=== PATIENT | female | born 1990 | race Caucasian/White ===

== ENCOUNTER → 2017-03-25 | Outpatient (CLI) | payer OTHER ==
[~2017-03-25] MED LIST: BCPILLS PO; FERR325T51 PO; MTR600X PO; OXYC-57 PO; PRENTAB26 PO; VNTHFA/IN INH
[2017-03-25 17:19] LABS: HEMATOCRIT 31.5 % (37-47); MEAN CELL VOLUME 84.5 fL (80-100); MEAN CORPUSCULAR HEMOGLOBIN 26.8 pg (25-34); MEAN CORPUSCULAR HGB CONC 31.7 g/dl (32-36); MEAN PLATELET VOLUME 10.2 fL (7.4-10.4); PLATELET COUNT 311 K/uL (130-400); RED BLOOD COUNT 3.73 M/uL (4.2-5.4); WHITE BLOOD COUNT 6.27 K/uL (4.8-10.8)
[2017-03-25 17:45] LABS: PREG INTERNAL NEGATIVE QC NEG CLEAR BACKGROUND; PREG INTERNAL POSITIVE QC POS CONTROL LINE
== END | disposition home or self-care (01) ==
LOC: C.LAB1850 16:11
PROVIDERS: ATTEND Physician Assistant
DX: N92.0 Excessive and frequent menstruation with regular cycle (principal)

== ENCOUNTER → 2017-05-25 | Day surgery (SDC) | payer OTHER ==
[2017-05-09 08:38] VITALS: Ht 154.9 cm; Wt 93.2 kg
[~2017-05-25] VITALS: Ht 154.9 cm; Wt 93.2 kg
[~2017-05-25] MED LIST changes: +ATROPINE SULFATE 0.1 MG/ML 5ML SYR IV PRN; +DEXAMETHASONE SOD INJ 4 MG/ML VIAL IV PRN; +DEXAMETHASONE SOD INJ 4 MG/ML VIAL ONE; +EpHEDrine SULFATE INJ 50 MG/ML AMP IV PRN; +FENTANYL CITRATE INJ 50 MCG/1 ML 2 ML VIAL IV PRN; +FENTANYL CITRATE INJ 50 MCG/1 ML 2 ML VIAL ONE; -FERR325T51 PO; +IBUPROFEN 200 MG TAB ONE; +IBUPROFEN 600 MG TAB PO PRN; +KETOROLAC TROMETHAMINE 30 MG/ML VIAL IV. PRN; +KETOROLAC TROMETHAMINE 30 MG/ML VIAL ONE; +LABETALOL HCL IV 5 MG/ML 20ML IV PRN; +LACTATED RINGER'S 1000ML 1,000 ML IV SCH; +LIDOCAINE HCL 2% 2 ML VIAL (20MG/ML) ONE; +METOCLOPRAMIDE HCL INJ 5 MG/ML 2 ML VIAL IV PRN; +MIDAZOLAM HCL 1 MG/ML 2ML VIAL ONE; -MTR600X PO; +MoRPHine SULFATE 10 MG/ML CARP/VIAL IV PRN; +ONDANSETRON INJ 2 MG/ML 2 ML VIAL IV PRN; +ONDANSETRON INJ 2 MG/ML 2 ML VIAL ONE; -OXYC-57 PO; +OXYCODONE/ACETAMINOPHEN 5-325 TAB PO PRN; +PHENYLEPHRINE 100MCG/ML 5ML SYR IV PRN; -PRENTAB26 PO; +PROPOFOL IV EMULSION 10 MG/ML 20 ML VIAL IV ONE; +SODIUM CHLORIDE 0.9% 1000ML 1,000 ML IV SCH
--- NOTE | 2017-05-25 12:44 | History & Physical Bridge - [place] ---
H&P Re-Evaluation Bridge Note: I have examined the patient, reviewed the History & Physical and in the interval since the performance of the History & Physical I have noted the following changes of clinical significance: No changes noted
--- NOTE | 2017-05-25 12:46 | Discharge Instructions-SurgCtr ---
Discharge Instructions Date of Service May 25, 2017. Visit Reason for Visit: Menorrhagia Discharge Discharge Diagnosis / Problem: D&C Discharge Goals Goal(s): Specific goals Activity Recommendations Activity Limitations: per Instructions/Follow-up section Anesthesia . Post Anesthesia Instructions: If you have had General Anesthesia or IV Sedation: * Do not drive today. * Resume driving when surgeon permits. * Do not make important decisions or sign legal documents today. * Call surgeon for: 1. Temperature elevations greater than 101 degrees F. 2. Uncontrollable pain. 3. Excessive bleeding. 4. Persistent nausea and vomiting. 5. Medication intolerance (nausea, vomiting or rash). * For nausea and vomiting use only clear liquids such as: tea, soda, bouillon until nausea subsides, then gradually increase diet as tolerated. * If you have any concerns or questions, call your surgeon's office. If physician is unavailable and it is an emergency, call 911 or go to the nearest emergency room. . Instructions / Follow-Up Instructions / Follow-Up ACTIVITY RECOMMENDATIONS: * Avoid tampons, douching, hot tubs, pools, and intercourse until bleeding has stopped. * May shower as usual. * No strenuous activity for 24-48 hours. After 24-48 hours, you may do anything you feel like doing (driving and sports are okay). SPECIAL CARE INSTRUCTIONS: Special Diet: * Mild nausea may occur in the immediate post-operative period. * Take clear liquids such as tea, cola or bouillon until all nausea has subsided; you may then resume your normal diet. Special Care: * Light bleeding and vaginal spotting can last from a few days to 3-4 weeks. Call your doctor if bleeding becomes heavier than the heaviest part of your period. * Check your temperature twice a day for one week. If it goes above 100.4 degrees Fahrenheit (38.0 Celsius), notify your doctor. * Call your doctor's office for an appointment for 6 weeks after your surgery. FOLLOW-UP VISIT: Call your doctor's office for an appointment for 6 weeks after your surgery. Diet Recommendations Home Diet: resume previous diet Pending Studies Studies pending at discharge: no Medical Emergencies . Who to Call and When: Medical Emergencies: If at any time you feel your situation is an emergency, please call 911 immediately. . Non-Emergent Contact Non-Emergency issues call your: Primary Care Provider . . "Provider Documentation" section prepared by Rachelle Segundo. .
--- NOTE | 2017-05-25 13:32 | [facility] Post Operative Brief Note ---
Immediate Operative Summary Operative Date May 25, 2017. Pre-Operative Diagnosis Menorrhagia Post-Operative Diagnosis Same Procedure(s) Performed Dilatation And Curettage, Hysteroscopy Surgeon Dr Segundo Prop[employer] Motor And Generator Repairer Surgeon(s) None Estimated Blood Loss 5ml Findings Endometrial cavity with thickened endometrium, ostia seen bilaterally Specimens A: Endometrial Currettings Complication(s) None Disposition Recovery Room / PACU
--- NOTE | 2017-05-25 13:43 | OPERATIVE REPORT ---
DATE OF OPERATION: 05/25/2017 PREOPERATIVE DIAGNOSES: Menorrhagia and thickened endometrium. POSTOPERATIVE DIAGNOSIS: Same. PROCEDURE: D&C curettage, hysteroscopy. SURGEON: Dr. Segundo. POOL SERVICER: None. ESTIMATED BLOOD LOSS: 5 mL. FINDINGS: Endometrial cavity with thickened endometrium and ostia seen bilaterally. SPECIMENS: [facility]. COMPLICATIONS: None. DISPOSITION: Stable to recovery room. DESCRIPTION: Lis patel a 27-year-old was placed on the table in the dorsal lithotomy position with candy-cane stirrups, prepped and draped in standard sterile fashion and a hard time-out was taken prior to proceeding. The bladder was emptied of urine via straight catheterization for approximately 50 mL of clear yellow. Specula were introduced in the vagina and the anterior lip of the cervix was grasped with a single-tooth tenaculum. Uterus sounded to 12 cm. The cervix was serially dilated to allow passage of the hysteroscope, which was then introduced. The cavity was seen to appear relatively normal with ostia visible bilaterally but somewhat thickened erythematous endometrial lining was noted. Scope was withdrawn and curettage was carried out retrieving material consistent with endometrial lining. The scope was then reintroduced and a cleanly curettings cavity was seen. All instruments were then removed and the procedure was brought to completion. I attest to the content of the Intraoperative Record and any orders documented therein. Any exception s are noted below.
--- NOTE | 2017-05-25 14:18 | Anesthesia Progress Nt - [facility] ---
Anesthesia Post Op Note Date & Time May 25, 2017 at 14:17 Vital Signs Pain Intensity: 3 Vital Signs Past 12 Hours Date Time Temp Pulse Resp B/P (MAP) Pulse Ox O2 Delivery O2 Flow Rate FiO2 05/25/17 14:03 36.8 89 16 119/73 (88) 98 Room Air 05/25/17 13:58 36.8 95 Room Air 05/25/17 13:57 79 19 05/25/17 13:57 78 19 96 05/25/17 13:56 133/88 05/25/17 13:52 89 20 05/25/17 13:52 90 20 97 05/25/17 13:51 75 21 05/25/17 13:51 88 21 130/84 82 05/25/17 13:51 75 21 05/25/17 13:51 88 21 130/84 82 05/25/17 13:46 80 16 05/25/17 13:46 80 16 05/25/17 13:46 80 16 129/89 100 05/25/17 13:46 80 16 129/89 100 05/25/17 13:41 77 20 132/90 100 05/25/17 13:41 78 20 05/25/17 13:41 78 20 05/25/17 13:41 77 20 132/90 100 05/25/17 13:36 84 20 05/25/17 13:36 77 20 137/94 100 05/25/17 13:36 84 20 05/25/17 13:36 77 20 137/94 100 05/25/17 13:32 139/89 05/25/17 13:32 139/89 05/25/17 13:31 36.8 68 18 139/89 99 Mask 6 05/25/17 11:44 36.9 69 16 140/86 (104) 100 Room Air Notes Mental Status: alert / awake / arousable, participated in evaluation Pt Amnestic to Procedure: Yes Nausea / Vomiting: adequately controlled Pain: adequately controlled Airway Patency, RR, SpO2: stable & adequate BP & HR: stable & adequate Hydration State: stable & adequate Anesthetic Complications: no major complications apparent
[2017-05-25 14:26] VITALS: BP 128/83; PULSE 69; O2SAT 100
== END | disposition home or self-care (01) ==
LOC: X.SURG 11:38
PROVIDERS: ATTEND Obstetrics & Gynecology
DX: N92.0 Excessive and frequent menstruation with regular cycle (principal); J45.909 Unspecified asthma, uncomplicated; F41.9 Anxiety disorder, unspecified; K21.9 Gastro-esophageal reflux disease without esophagitis; E66.9 Obesity, unspecified; Z79.3 Long term (current) use of hormonal contraceptives; Z80.3 Family history of malignant neoplasm of breast